=== PATIENT | female | born 1995 | race Caucasian/White ===

== ENCOUNTER → 2016-06-14 | Day surgery (SDC) | payer BC, OTHER ==
[2016-06-12 13:36] VITALS: BMI 23.0
[~2016-06-14] VITALS: Ht 162.6 cm; Wt 61.4 kg
[~2016-06-14] MED LIST: DESV100T PO; LIDOCAINE HCL 2% 2 ML VIAL (20MG/ML) ONE; LITH150C6 PO; LITH300T2 PO; LTHSR/300 PO; MIDAZOLAM HCL 1 MG/ML 2ML VIAL ONE; NORE1TAB50 PO; ONDANSETRON INJ 2 MG/ML 2 ML VIAL ONE; PROPOFOL IV EMULSION 10 MG/ML 20 ML VIAL IV ONE; SODIUM CHLORIDE 0.9% 500ML 500 ML IV ONE
[2016-06-14 13:51] VITALS: Ht 162.6 cm; Wt 61.4 kg
--- NOTE | 2016-06-14 14:10 | Endo History and Physical ---
History & Physical Date of Service: Jun 14, 2016. Chief Complaint: ANEMIA Referring Physician: DR. RAMOS History of Present Illness 21 yo CF who presents for Colonoscopy secondary to iron deficiency anemia. Past Surgical History Hx Cardiac Surgery: No Hx Internal Defibrillator: No Hx Pacemaker: No Hx Abdominal Surgery: No Hx of Implantable Prosthesis: No Hx Cancer Surgery: No Hx Thoracic Surgery: No Hx Orthopedic: No Hx Urinary Tract Surgery: No Family History None Social History Smoking Status: Never Smoker Hx Substance Use: No Hx Alcohol Use: No Allergies Coded Allergies: No Known Allergies (Unverified , 06/14/16) Current Medications Reported Home Medications Medications Dose Route/Sig Max Daily Dose Days Date Category Norethindrone (Norethindrone (Contraceptive)) 0.35 Mg Tab 1 Tab PO HS 06/12/16 Reported Pristiq (Desvenlafaxine Succinate) 100 Mg Tab 100 Mg PO QAM 06/12/16 Reported [place] Carbonate 300 Mg Tab 2 Tabs PO HS 06/12/16 Reported [place] Carbonate 300 Mg Cap 300 Mg PO QAM 06/12/16 Reported [place] Carbonate 150 Mg Cap 150 Mg PO QAM 06/12/16 Reported Vital Signs Weight (Kilograms): 61.36 Height (Feet): 5 Height (Inches): 4 Date Time Temp Pulse Resp B/P Pulse Ox O2 Delivery O2 Flow Rate FiO2 06/14/16 13:59 36.8 68 18 102/66 100 Room Air Physical Exam General Appearance: WD/WN, no apparent distress Respiratory/Chest: Auscultation: breath sounds normal Cardiovascular: Heart Auscultation: RRR Abdomen: Bowel Sounds: normal Inspection & Palpation: soft, non-distended, no tenderness, guarding & rebound Assessment and Plan Assessment: 21 yo CF who presents for Colonoscopy secondary to iron deficiency anemia. Plan: Proceed with colonoscopy.
--- NOTE | 2016-06-14 15:27 | Discharge Instructions ---
Endoscopy Patient Instructions Date / Procedure(s) Performed Jun 14, 2016. Colonoscopy Allergy Information Coded Allergies: No Known Allergies (Unverified , 06/14/16) Discharge Date / Findings Jun 14, 2016. Normal colonoscopy Medication Instructions OK to resume all medications today as prescribed Reported Home Medications Medications Dose Route/Sig Max Daily Dose Days Date Category Norethindrone (Norethindrone (Contraceptive)) 0.35 Mg Tab 1 Tab PO HS 06/12/16 Reported Pristiq (Desvenlafaxine Succinate) 100 Mg Tab 100 Mg PO QAM 06/12/16 Reported [place] Carbonate 300 Mg Tab 2 Tabs PO HS 06/12/16 Reported [place] Carbonate 300 Mg Cap 300 Mg PO QAM 06/12/16 Reported [place] Carbonate 150 Mg Cap 150 Mg PO QAM 06/12/16 Reported Provider Instructions Activity Restrictions - No exercising or heavy lifting for 24 hours. - Do not drink alcohol the day of the procedure. - Do not drive a car or operate machinery until the day after the procedure. - Do not make any important decisions or sign important papers in 24 hours after the procedure. Following Day: - Return to full activity which may include returning to work/school. Diet Start your diet with liquids and light foods (jello, soup, juice, toast). Then eat your usual diet if not nauseated. Treatment For Common After Affects For mild abdominal pain, bloating, or excessive gas: - Rest - Eat lightly - Lie on right side Follow-Up Information Follow-up with DR. RAMOS as scheduled Anesthesia Information What You Should Know You have had a procedure that required some medicine to reduce anxiety and discomfort. This treatment is called moderate sedation. After receiving the treatment, you may be sleepy, but you will be able to breathe on your own. The effects of the treatment may last for several hours. Follow these instructions along with Activity/Diet recommendations noted above: * Do NOT do anything where dizziness or clumsiness would be dangerous. * Rest quietly at home today, then you can be up and about tomorrow. * Have a responsible person stay with you the rest of today. * You may have had an I.V. today. If so, you may take the dressing off later today. Recommendations Call your doctor if: * Trouble breathing * Continuous vomiting for more than 24 hours * Temperature above 101 degrees * Severe abdominal pain or bloating * Pain not relieved by pain medicine ordered * There is increased drainage or redness from any incision * A large amount of rectal bleeding greater than 2-3 tablespoons. (If you had a polyp/s removed or have hemorrhoids, a small amount of blood - from the rectum is to be expected.) * You have any unanswered questions or concerns. IN THE EVENT OF A SERIOUS EMERGENCY, GO TO THE NEAREST EMERGENCY ROOM Your discharge instructions were prepared by provider Kendall Artis. Patient Instructions Signature Page Kristie Simpson Patient (or Guardian) Signature/Date: I have read and understand the instructions given to me by my caregivers. Caregiver/RN/Doctor Signature/Date: The above-named patient and/or guardian has received patient instructions on this date. + Original Patient Signature Page (only) stays with chart. Please make copy for patient.
--- NOTE | 2016-06-14 15:27 | GI REPORT ---
Procedure Date: 06/14/2016 2:49 PM Procedure: Colonoscopy Indications: Iron deficiency anemia Medicines: Monitored Anesthesia Care Complications: No immediate complications. Estimated Blood Loss: Estimated blood loss: none. Procedure: Pre-Anesthesia Assessment: - Prior to the procedure, a History and Physical was performed, and patient medications and allergies were reviewed. The patient's tolerance of previous anesthesia was also reviewed. The risks and benefits of the procedure and the sedation options and risks were discussed with the patient. All questions were answered, and informed consent was obtained. Prior Anticoagulants: The patient has taken no previous anticoagulant or antiplatelet agents. ASA Grade Assessment: II - A patient with mild systemic disease. After reviewing the risks and benefits, the patient was deemed in satisfactory condition to undergo the procedure. After I obtained informed consent, the scope was passed under direct vision. Throughout the procedure, the patient's blood pressure, pulse, and oxygen saturations were monitored continuously. The On-site loaner was introduced through the anus and advanced to the terminal ileum. The colonoscopy was performed without difficulty. The patient tolerated the procedure well. The quality of the bowel preparation was good. The terminal ileum, ileocecal valve, appendiceal orifice, and rectum were photographed. Findings: The colon (entire examined portion) appeared normal. Impression: - The entire examined colon is normal. - No specimens collected. Recommendation: - Resume previous diet. - Continue present medications. - Repeat colonoscopy at age 50 for surveillance. - Return to primary care physician as previously scheduled. Kendall Artis DO 06/14/2016 3:25:47 PM This report has been signed electronically. Note Initiated On: 06/14/2016 2:49 PM I attest to the content of the Intraoperative Record and orders documented therein, exceptions below
[2016-06-14 15:59] VITALS: BP 101/62; PULSE 65; O2SAT 100
--- NOTE | 2016-06-14 16:22 | Anesthesiology Progress Note ---
Anesthesia Post Op Note Date & Time Jun 14, 2016 at 16:22 Vital Signs Pain Intensity: 0 Vital Signs Past 12 Hours Date Time Temp Pulse Resp B/P Pulse Ox O2 Delivery O2 Flow Rate FiO2 06/14/16 15:59 65 18 101/62 100 Room Air 06/14/16 15:29 70 16 92/43 97 Room Air 06/14/16 15:29 50 18 92/53 100 Room Air 06/14/16 13:59 36.8 68 18 102/66 100 Room Air Notes Mental Status: alert / awake / arousable, participated in evaluation Pt Amnestic to Procedure: Yes Nausea / Vomiting: adequately controlled Pain: adequately controlled Airway Patency, RR, SpO2: stable & adequate BP & HR: stable & adequate Hydration State: stable & adequate Anesthetic Complications: no major complications apparent
== END | disposition home or self-care (01) ==
LOC: C.GI 13:30
PROVIDERS: ATTEND Internal Medicine
DX: D50.9 Iron deficiency anemia, unspecified (principal)

== ENCOUNTER → 2016-09-10 | Outpatient (CLI) | payer BC, OTHER ==
[~2016-09-10] MED LIST changes: -LIDOCAINE HCL 2% 2 ML VIAL (20MG/ML) ONE; -MIDAZOLAM HCL 1 MG/ML 2ML VIAL ONE; -ONDANSETRON INJ 2 MG/ML 2 ML VIAL ONE; -PROPOFOL IV EMULSION 10 MG/ML 20 ML VIAL IV ONE; -SODIUM CHLORIDE 0.9% 500ML 500 ML IV ONE
[2016-09-10 11:18] LABS: BASO % 0.8 %; BASO ABS # 0.04 K/uL (0-0.2); HEMATOCRIT 35.7 % (37-47); IG% 0.2 %; LYMPH % 29.4 %; LYMPH ABS # 1.41 K/uL (1.2-3.4); MEAN CELL VOLUME 72.6 fL (80-100); MEAN CORPUSCULAR HEMOGLOBIN 21.1 pg (25-34); MEAN CORPUSCULAR HGB CONC 29.1 g/dl (32-36); MEAN PLATELET VOLUME 10.6 fL (7.4-10.4); MONO % 13.4 %; NEUT % 52.2 %; PLATELET COUNT 335 K/uL (130-400); RED BLOOD COUNT 4.92 M/uL (4.2-5.4); WHITE BLOOD COUNT 4.79 K/uL (4.8-10.8)
[2016-09-10 11:42] LABS: BLOOD UREA NITROGEN 10 mg/dl (7-18); BUN/CREATININE RATIO 13.5 (10-20); CALCIUM 9.5 mg/dl (8.5-10.1); CARBON DIOXIDE 27 mmol/L (21-32); CHLORIDE 109 mmol/L (98-107); CREATININE 0.71 mg/dl (0.60-1.20); GLUCOSE 89 mg/dl (70-99); POTASSIUM 3.9 mmol/L (3.5-5.1); SODIUM 140 mmol/L (136-145)
[2016-09-10 11:47] LABS: FERRITIN 2.7 ng/ml (8.0-388.0); TOTAL IRON BINDING CAPACITY 428 mcg/dl (250-450)
[2016-09-10 12:42] LABS: COMPLETE YES; HYPOCHROMIA PRESENT; MICROCYTOSIS PRESENT
== END | disposition home or self-care (01) ==
LOC: C.LABBC 08:10
PROVIDERS: ATTEND Internal Medicine
DX: F31.81 Bipolar II disorder (principal); F41.1 Generalized anxiety disorder; F50.01 Anorexia nervosa, restricting type; D64.9 Anemia, unspecified

== ENCOUNTER → 2016-10-03 | Outpatient (CLI) | payer BC, OTHER | END | disposition home or self-care (01) | LOC: C.PAPS 11:30 | PROVIDERS: ATTEND Physician Assistant | DX: Z01.419 Encounter for gynecological examination (general) (routine) without abnormal findings (principal) ==

== ENCOUNTER → 2016-10-03 | Outpatient (CLI) | payer BC, OTHER ==
[2016-10-05 02:58] LABS: CHLAMYDIA TRACH RNA*** NOT DETECTED (NOT DETECTED); GC (NEIS GONORRHOEAE)RNA** NOT DETECTED (NOT DETECTED)
== END | disposition home or self-care (01) ==
LOC: C.LABSPEC 10:52
PROVIDERS: ATTEND Physician Assistant
DX: Z01.419 Encounter for gynecological examination (general) (routine) without abnormal findings (principal)

== ENCOUNTER → 2017-04-22 | Day surgery (SDC) | payer BC, OTHER ==
[2017-04-08 08:20] VITALS: Ht 162.6 cm; Wt 63.6 kg
[~2017-04-22] VITALS: Ht 162.6 cm; Wt 63.6 kg
[~2017-04-22] MED LIST changes: +INUL6.5C PO; +LIDOCAINE HCL 2% 2 ML VIAL (20MG/ML) ONE; -LITH300T2 PO; +MIDAZOLAM HCL 1 MG/ML 2ML VIAL ONE; +MULT1CHW37 PO; -NORE1TAB50 PO; +PRLSR20 PO; +PROPOFOL IV EMULSION 10 MG/ML 20 ML VIAL IV ONE
--- NOTE | 2017-04-22 15:11 | Endo History and Physical ---
History & Physical Date of Service: Apr 22, 2017. Chief Complaint: reflux Referring Physician: Dr. Salinas History of Present Illness 22 yo CF who presents for EGD secondary to GERD. Past Surgical History Hx Cardiac Surgery: No Hx Internal Defibrillator: No Hx Pacemaker: No Hx Abdominal Surgery: No Hx of Implantable Prosthesis: No Hx Post-Op Nausea and Vomiting: No Hx Cancer Surgery: No Hx Thoracic Surgery: No Hx Orthopedic: No Hx Urinary Tract Surgery: No Family History None Social History Smoking Status: Never Smoker Hx Substance Use: No Hx Alcohol Use: Yes (OCCASIONAL/SOCIAL) Allergies Coded Allergies: NO KNOWN DRUG ALLERGIES (Verified Allergy, Unknown, ., 04/08/17) Nickel (Verified Allergy, Unknown, RASH, 04/08/17) Current Medications Reported Home Medications Medications Dose Route/Sig Max Daily Dose Days Date Category Fiber Choice Fruity Bites (Inulin) 1.5 Gm Chw 1 Tab PO DAILY 04/08/17 Reported Multi Adult Gummies (Multiple Vitamins W/ Minerals) 1 Chw Chw 2 Tabs PO DAILY 04/08/17 Reported Prilosec (Omeprazole) 20 Mg Capcr 20 Mg PO BID 04/08/17 Reported Pristiq (Desvenlafaxine Succinate) 100 Mg Tab 100 Mg PO QAM 06/12/16 Reported [place] Carbonate 300 Mg Cap 300 Mg PO HS 06/12/16 Reported [place] Carbonate 150 Mg Cap 150 Mg PO QAM 06/12/16 Reported Vital Signs Weight (Kilograms): 63.64 Height (Feet): 5 Height (Inches): 4 Date Time Temp Pulse Resp B/P (MAP) Pulse Ox O2 Delivery O2 Flow Rate FiO2 04/22/17 15:08 36.8 72 16 102/60 (74) 100 Room Air Physical Exam General Appearance: WD/WN, no apparent distress Respiratory/Chest: Auscultation: breath sounds normal Cardiovascular: Heart Auscultation: RRR Abdomen: Bowel Sounds: normal Inspection & Palpation: soft, non-distended, no tenderness, guarding & rebound Assessment and Plan Assessment: 22 yo CF who presents for EGD secondary to GERD. Plan: Proceed with EGD.
--- NOTE | 2017-04-22 15:37 | Discharge Instructions ---
Endoscopy Patient Instructions Date / Procedure(s) Performed Apr 22, 2017. EGD Allergy Information Coded Allergies: NO KNOWN DRUG ALLERGIES (Verified Allergy, Unknown, ., 04/08/17) Nickel (Verified Allergy, Unknown, RASH, 04/08/17) Discharge Date / Findings Apr 22, 2017. Duodenal biopsies Gastric antrum biopsies Mid-esophageal biopsies Medication Instructions OK to resume all medications today as prescribed Reported Home Medications Medications Dose Route/Sig Max Daily Dose Days Date Category Fiber Choice Fruity Bites (Inulin) 1.5 Gm Chw 1 Tab PO DAILY 04/08/17 Reported Multi Adult Gummies (Multiple Vitamins W/ Minerals) 1 Chw Chw 2 Tabs PO DAILY 04/08/17 Reported Prilosec (Omeprazole) 20 Mg Capcr 20 Mg PO BID 04/08/17 Reported Pristiq (Desvenlafaxine Succinate) 100 Mg Tab 100 Mg PO QAM 06/12/16 Reported [place] Carbonate 300 Mg Cap 300 Mg PO HS 06/12/16 Reported [place] Carbonate 150 Mg Cap 150 Mg PO QAM 06/12/16 Reported Provider Instructions Activity Restrictions - No exercising or heavy lifting for 24 hours. - Do not drink alcohol the day of the procedure. - Do not drive a car or operate machinery until the day after the procedure. - Do not make any important decisions or sign important papers in 24 hours after the procedure. Following Day: - Return to full activity which may include returning to work/school. Diet Start your diet with liquids and light foods (jello, soup, juice, toast). Then eat your usual diet if not nauseated. Treatment For Common After Affects For mild abdominal pain, bloating, or excessive gas: - Rest - Eat lightly - Lie on right side Follow-Up Information Follow-up with Dr. Salinas as scheduled Anesthesia Information What You Should Know You have had a procedure that required some medicine to reduce anxiety and discomfort. This treatment is called moderate sedation. After receiving the treatment, you may be sleepy, but you will be able to breathe on your own. The effects of the treatment may last for several hours. Follow these instructions along with Activity/Diet recommendations noted above: * Do NOT do anything where dizziness or clumsiness would be dangerous. * Rest quietly at home today, then you can be up and about tomorrow. * Have a responsible person stay with you the rest of today. * You may have had an I.V. today. If so, you may take the dressing off later today. Recommendations Call your doctor if: * Trouble breathing * Continuous vomiting for more than 24 hours * Temperature above 101 degrees * Severe abdominal pain or bloating * Pain not relieved by pain medicine ordered * There is increased drainage or redness from any incision * A large amount of rectal bleeding greater than 2-3 tablespoons. (If you had a polyp/s removed or have hemorrhoids, a small amount of blood - from the rectum is to be expected.) * You have any unanswered questions or concerns. IN THE EVENT OF A SERIOUS EMERGENCY, GO TO THE NEAREST EMERGENCY ROOM Your discharge instructions were prepared by provider Kendall Artis. Patient Instructions Signature Page Kristie Simpson Patient (or Guardian) Signature/Date: I have read and understand the instructions given to me by my caregivers. Caregiver/RN/Doctor Signature/Date: The above-named patient and/or guardian has received patient instructions on this date. + Original Patient Signature Page (only) stays with chart. Please make copy for patient.
--- NOTE | 2017-04-22 15:39 | Anesthesiology Progress Note ---
Anesthesia Post Op Note Date & Time Apr 22, 2017 at 15:39 Vital Signs Pain Intensity: 0 Vital Signs Past 12 Hours Date Time Temp Pulse Resp B/P (MAP) Pulse Ox O2 Delivery O2 Flow Rate FiO2 04/22/17 15:08 36.8 72 16 102/60 (74) 100 Room Air Notes Mental Status: alert / awake / arousable, participated in evaluation Pt Amnestic to Procedure: Yes Nausea / Vomiting: adequately controlled Pain: adequately controlled Airway Patency, RR, SpO2: stable & adequate BP & HR: stable & adequate Hydration State: stable & adequate Anesthetic Complications: no major complications apparent
--- NOTE | 2017-04-22 15:44 | GI REPORT ---
Procedure Date: 04/22/2017 3:15 PM Procedure: Upper GI endoscopy Indications: Gastro-esophageal reflux disease Medicines: Monitored Anesthesia Care Complications: No immediate complications. Estimated Blood Loss: Estimated blood loss: none. Procedure: Pre-Anesthesia Assessment: - Prior to the procedure, a History and Physical was performed, and patient medications and allergies were reviewed. The patient's tolerance of previous anesthesia was also reviewed. The risks and benefits of the procedure and the sedation options and risks were discussed with the patient. All questions were answered, and informed consent was obtained. Prior Anticoagulants: The patient has taken no previous anticoagulant or antiplatelet agents. ASA Grade Assessment: II - A patient with mild systemic disease. After reviewing the risks and benefits, the patient was deemed in satisfactory condition to undergo the procedure. After obtaining informed consent, the endoscope was passed under direct vision. Throughout the procedure, the patient's blood pressure, pulse, and oxygen saturations were monitored continuously. The scope was introduced through the mouth, and advanced to the second part of duodenum. The upper GI endoscopy was accomplished without difficulty. The patient tolerated the procedure well. Findings: The examined esophagus was normal. Biopsies were taken with a cold forceps for histology. The entire examined stomach was normal. Biopsies were taken with a cold forceps for Helicobacter pylori testing. The examined duodenum was normal. Biopsies for histology were taken with a cold forceps for evaluation of celiac disease. Impression: - Normal esophagus. Biopsied. - Normal stomach. Biopsied. - Normal examined duodenum. Biopsied. Recommendation: - Resume previous diet. - Continue present medications. - Await pathology results. - Return to primary care physician as previously scheduled. Kendall Artis, DO 04/22/2017 3:44:00 PM This report has been signed electronically. Note Initiated On: 04/22/2017 3:15 PM I attest to the content of the Intraoperative Record and orders documented therein, exceptions below
[2017-04-22 16:11] VITALS: BP 105/68; PULSE 69; O2SAT 100
== END | disposition home or self-care (01) ==
LOC: C.GI 14:44
PROVIDERS: ATTEND Internal Medicine
DX: K21.9 Gastro-esophageal reflux disease without esophagitis (principal); F31.9 Bipolar disorder, unspecified

== ENCOUNTER → 2017-07-08 | Outpatient (CLI) | payer BC, OTHER ==
[~2017-07-08] MED LIST changes: -LIDOCAINE HCL 2% 2 ML VIAL (20MG/ML) ONE; -MIDAZOLAM HCL 1 MG/ML 2ML VIAL ONE; -PROPOFOL IV EMULSION 10 MG/ML 20 ML VIAL IV ONE
[2017-07-08 12:18] LABS: HEMATOCRIT 26.3 % (37-47); HEMOGLOBIN 7.4 g/dL (12.0-16.0); MEAN CELL VOLUME 62.5 fL (80-100); MEAN CORPUSCULAR HEMOGLOBIN 17.6 pg (25-34); MEAN CORPUSCULAR HGB CONC 28.1 g/dl (32-36); MEAN PLATELET VOLUME 9.3 fL (7.4-10.4); PLATELET COUNT 357 K/uL (130-400); RED CELL DISTRIBUTION WIDTH CV 17.3 % (11.5-14.5); RED CELL DISTRIBUTION WIDTH SD 39.4 fL (36.4-46.3); WHITE BLOOD COUNT 3.46 K/uL (4.8-10.8)
[2017-07-08 12:41] LABS: BLOOD UREA NITROGEN 12 mg/dl (7-18); CALCIUM 9.2 mg/dl (8.5-10.1); CARBON DIOXIDE 25 mmol/L (21-32); CREATININE 0.67 mg/dl (0.60-1.20); GLUCOSE 89 mg/dl (70-99); POTASSIUM 3.7 mmol/L (3.5-5.1); SODIUM 139 mmol/L (136-145)
[2017-07-08 12:48] LABS: CHOLESTEROL 168 mg/dl (0-200); LDL CHOLESTEROL CALCULATED 103 mg/dl; TRANSFERRIN 358 mg/dl (200-360)
== END | disposition home or self-care (01) ==
LOC: C.LAB1850 09:52
PROVIDERS: ATTEND Internal Medicine
DX: E78.00 Pure hypercholesterolemia, unspecified (principal); D50.9 Iron deficiency anemia, unspecified